=== PATIENT | male | born 1975 | race Caucasian/White ===

== ENCOUNTER 2025-06-21 00:57 | Day surgery (SDC) | payer BC, SELFPAY ==
[2025-06-06 15:07] VITALS: BMI 36.9
--- OUTSIDE RECORDS SUMMARY | 2025-06-21 00:59 | XMS_ITS | Encounter Summary ---
Author Organization [facility] Address [address] [place] [address] Care Team Providers Care Retail Project Merchandiser Name Role Phone Unavailable Primary Care Provider Unavailabl e Encounter Details Date Type Department Care Team (Late st Contact Info) Description 10/21/2003 Outpatient Historical [facility] Internal Medicine Maryuri Jeffery [address] [place] [address] [place] [address] [place] [address] Social History Tobacco Use Types Packs/Day Years Used Date Smoking Tobacco: Never Assessed Sex and Gender Information Value Date Recorded Sex Assigned at Not on file 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
--- OUTSIDE RECORDS SUMMARY | 2025-06-21 00:59 | XMS_ITS | Continuity of Care Document ---
Author Organization [facility], [facility] Address [address] [place] [address] Assessment No assessment recorded. Plan of Treatment Reminders Order Date Submit Date Provider Last Modified By Organization Details Last Modified Time Details Appointments ANY 15 2025 02:00P Subha Whitlock, DO Not available Not available Not available Lab lipid panel, serum 2024 026 [email or web address], [facility] [place], [address], 04/20/2025 18:01:36 hepatic function panel, serum 2024 026 [email or web address] [facility], [address] [address] [facility] [address], [place], [address], 04/20/2025 18:01:36 Referral gastroent erologist referral - colonosco py 2024 025 [facility], [address], [address], [place], [address], 04/22/2025 08:30:53 Procedures None recorded. Surgeries None recorded. Imaging None recorded. Medication Orders rosuvasta tin 5 mg tablet 2024 025 [email or web address] [id number], [address], [place], [address], 04/20/2025 18:01:36 amlodipin e 5 mg tablet 2024 025 [email or web address] [id number], [address] [place], [address], 04/20/2025 18:01:36 Patient TargetsNo targets recorded. 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 Screening for malignant neoplasm of colon colonoscopy Referring Physician: Noah Whitlock, Family Medicine, Encounter Date: 04/20/2025 Problems Name Problem SNOMED Code Status Onset Date Resolution Date Notes Provider Name and Address Organization Details Recorded Time Obesity 341687070 Active 2023 Noah Whitlock DO Attn: Jose [address]saint,[address] [place], [address], [place] [facility] 20:04:42 Dyslipidemia 773044834 Active 2023 Noah Whitlock DO Attn: Joes toussaint,[address] [place], [address], [place] [facility] 20:04:43 Adult health examination Active 2023 Noah Whitlock DO Attn: Jose [address] [place], [address], [place] 20:04:44 Essential hypertension 54575725 Active 2024 Noah Whitlock DO Attn: Jose [address] [place], [address], [place] [facility] 17:37:19 History and physical examination, annual for health maintenance Active 2024 Noah Whitlock DO Attn: Jose [address] [place], [address], [place] [facility] [facility] 17:37:20 Problem Notes None recorded. Medical Equipment None Reported. Allergies No known drug allergies Medications Name Sig Start Date Stop Date Status Note LastModified by Organization Details LastModified Time amlodipine 5 mg tablet TAKE 1 TABLET BY MOUTH EVERY DAY active Not Available Not Available No t Available rosuvastatin 5 mg tablet TAKE 1 TABLET BY MOUTH EVERY DAY active Not Available Not Available No t Available Vitals Date Recorded Systolic And Diastolic Provider Name and Address Organization Details Last Updated DateTime 04/20/2025 142/94 mm[Hg] Christ Pereira Attn: [facility], [place], [address], [facility] 04/20/2025 17:37:07 Date Recorded Body height Body mass index (BMI) Body weight Provider Name and Address Organization Details Last Updated DateTime 04/20/2025 177.8 cm 37.6 kg/m2 629527.25 g Brianne Brantley MA [facility] 04/20/2025 16:59:59 Social History Question Answer Notes LastModified by [employer] Details LastModified Time Tobacco Smoking Status Former Smoker Barbara Lazarus torres, [facility] 01/09/2024 15:56:34 What Is Your Level Of Caffeine Consumption? Occasional Information not available 04/20/2025 What Was The Date Of Your Most Recent Tobacco Screening? 04/20/2025 Information not available 04/20/2025 What Is Your Relationship Status? Information not available 01/09/2024 Has Tobacco Cessation Counseling Been Provided? No Information not available 04/20/2025 How Many Years Have You Smoked Tobacco? 20 Information not available 01/09/2024 Sex: Male Functional Status Question Answer Note LastModified by [employer] Details LastModified Time Do you use any illicit or recreational drugs? No Information not available 04/20/2025 Do you or have you ever used any other forms of tobacco or nicotine? No Information not available 04/20/2025 What is your level of alcohol consumption? Occasional Information not available 04/20/2025 Mental Status None recorded. Family History Nothing Reported. Medical History Condition Response Coronary Artery Disease N Other N Atrial Fibrillation N High Blood Pressure Y Thyroid Problems N Kidney or Bladder Problems N Depression N COPD N Blood Clots N GI Problems N Skin Problems N Eating Disorder N Anemia N Heart Attack ([place]) N Diabetes N Anxiety Disorder N Muscle, Joint, or Bone Problems N Seizures/Epilepsy N Arthritis N Acid Reflux (GERD) N Cancer N Stroke N Allergies N Asthma N ADHD N Substance Abuse N High Cholesterol Y Hepatitis N Liver Disease N Schizophrenia N Headaches N Osteoporosis N Heart Failure N Immunizations Vaccine Type Date Status Note Provider Nam e and Address Organization Details Recorded Time COVID-19, mRNA, LNP-S, PF, 30 mcg/0.3 mL dose 10/31/2020 completed Not Available [facility] 16:57:21 COVID-19, mRNA, LNP-S, PF, 30 mcg/0.3 mL dose 11/25/2020 completed Not Available [facility] 16:57:21 COVID-19, mRNA, LNP-S, PF, 30 mcg/0.3 mL dose 07/17/2021 completed Not Available [facility] 16:57:21 Past Encounters Encounter ID Performer Location Encounter Start Date Encounter Closed Date Diagnosis/Indication Diagnosis SNOMED-CT Code Diagnosis ICD10 Code Diagnosis IMO Codes Diagnosis Note [id number] Noah Whitlock DO [facility] [address] [address] 04/20/2025 16:49:53 04/21/2025 13:57:24 History and physical examination, annual for health maintenance 06843060 Z00.00 2073468211 restart rosuvastat inlab 3 monthscolo noscopy Essential hypertension 70040454 I10 35887 restart amlodipine amlodipine 5 mg dailyhas not taken for months Obese class II 762024141 1 26307 E66.812 E66.3 0836004924 Dyslipidemia 571376102 E 78.5 chronic condition at goal with Crestor 5 mg Screening for malignant neoplasm of colon 258503723 Z12.11 763071 Health Concerns Section Related Observation LastModified by Organization Detai ls LastModified Time None Recorded Concern Status LastModified by Organization Details LastModified Time None Recorded Payers Encounter Date Sequence Insurance Name Policy Number Policy Jimenez Covered Member ID Jimenez Member ID Guarantor Name 04/20/2025 1 [employer] FORMERLY [facility] ([facility] Noah Canela [id number] Noah Canela Notes Date Note Type Note Provider Name and Address Organization Details Recorded Time 04/20/2025 text/html annual wellness Noah Whitlock DO Attn: [address] [facility], [place], [address], [facility] 04/20/2025 18:25:00
--- OUTSIDE RECORDS SUMMARY | 2025-06-21 00:59 | XMS_ITS | Data Portability ---
Author Organization [facility] Address [address] [place] [address] Assessment No assessment recorded. Plan of Treatment Reminders Order Date Submit Date Provider Last Modified By Organization Details Last Modified Time Details Appointments ANY 15 2025 02:00P Subha Whitlock, DO Not available Not available Not available Lab lipid panel, serum 2024 026 [email or web address] [facility], [address], [place], [address], 04/20/2025 18:01:36 hepatic function panel, serum 2024 026 [email or web address] [facility], [address], [place], [address], 04/20/2025 18:01:36 Referral gastroent erologist referral - colonosco py 2024 025 [facility], [address], [address], [place], [address], 04/22/2025 08:30:53 Procedures None recorded. Surgeries None recorded. Imaging None recorded. Medication Orders rosuvasta tin 5 mg tablet 2024 025 [email or web address] [id number], [address] [place], [address], 04/20/2025 18:01:36 amlodipin e 5 mg tablet 2024 025 [email or web address] [id number], [address] [place], [address], 04/20/2025 18:01:36 Patient TargetsNo targets recorded. 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 Referral for Screening for malignant neoplasm of colon colonoscopy Referring Physician: Noah Whitlock, Family Medicine, Encounter Date: 04/20/2025 Results Created Date Observation Date Name Description Value Unit Range Abnormal Flag Note LastModifiedBy Organization Detail LastModifiedTime 03/18/2003/19/2025 LIPID PANEL , STAND BOOKER cholesterol, total 294 mg/dL <200 high Not Available [address], [address], 03/19/2025 06:57:14 03/18/2003/19/2025 LIPID PANEL , STAND BOOKER HDL cholesterol 47 mg/dL > or = 40 normal Not Available [address], [address], 03/19/2025 06:57:14 03/18/2003/19/2025 LIPID PANEL , STAND BOOKER triglyceride s 215 mg/dL <150 high If a non-f astin g speci men was colle cted, consi cesar repea t trigl yceri de testi ng on a fasti ng speci men if clini almas indic ated. Julian sahu et al. J. of Clin. Lipid ol. 2015; 9:129 -169. Not Available [address], [address], 03/19/2025 06:57:14 03/18/20 25 03/19/2025 LIPID PANEL , STAND BOOKER LDL-choleste rol 206 mg/dL _(yajaira c) high LDL-C level s > or = 190 mg/dL may indic ate famil ial hyper kat stero lemia (FH). Clini yajaira asses sment and measu remen t of blood lipid level s shoul d be consi dered for all first degre e relat bandar of patie nts with an FH diagn osis. LDL Kat stero l (LDL- C) level s > or = 300 mg/dL may indic ate homoz ygous famil ial hyper kat stero lemia (HoFH ). Untre ated, these extre brent high LDL-C level s can resul t in josé miguel ture CV event s and morta lity. Patie nts shoul d be ident ified early and provi ded appro priat e inter venti ons to reduc e the cumul ative LDL-C burde n from . For quest ions about testi ng for famil ial hyper kat stero lemia , pleas e call [facility] r[facility]do at 1.866 .GENE .INFO . Julian sahu T, et al. J Natio nal Lipid Assoc iatio n Recom menda tions for Patie nt-Ce ntere d Manag ement of Dysli pidem ia: Part 1 Journ al of Clini yajaira Lipid ology 2015; 9(2), 129-1 69. Subha Riojas. et al. (2014 ). Homoz ygous famil ial hyper kat stero laemi a: new insig hts and emma nce for clini cians to impro ve detec tion and clini yajaira manag ement . Europ ishaan Heart Journ al, 35(74 ), 2140- 2157. Refer ence range : <100 Ty able range <100 mg/dL for prima ry preve ntion ; <70 mg/dL for patie nts with CHD or diabe tic patie nts with > or = 2 CHD risk facto rs. LDL-C is now calcu lated using the Lacey n-Hop kins calcu latio n, which is a valid ated novel metho d provi ding cheryle r accur acy than the Fried lanette equat ion in the estim ation of LDL-C . Lacey n SS et al. DALE. 2013; 310(1 9): 2061- 2068 (http ://ed ucati on.Qu Karin cowanLomakis. com/f aq/FA Q164) Not Available [address], [address], 03/19/2025 06:57:14 03/18/2003/19/2025 LIPID PANEL , STAND BOOKER chol/HDLC ratio 6.3 (calc ) <5.0 high Not Available [facility] [address], [address], 03/19/2025 06:57:14 03/18/2003/19/2025 LIPID PANEL , STAND BOOKER non HDL cholesterol 247 mg/dL _(yajaira c) <130 high Non-H DL level > or = 220 is very high and may indic ate christy ic famil ial hyper kat stero lemia (FH). Clini yajaira asses sment and measu remen t of blood lipid level s shoul d be consi dered for all first -degr ee relat bandar of patie nts with an FH diagn osis. For patie nts with diabe sixto plus 1 major ASCVD risk facto r, treat ing to a non-H DL-C goal of <100 mg/dL (LDL- C of <70 mg/dL ) is consi dered a thera peuti c optio n. Not Available [address], [address], 03/19/2025 06:57:14 03/18/2003/19/2025 TSH+F REE T4 TSH 2.15 mIU/L 0.40-4 .50 normal Not Available [facility] [address], [address], 03/19/2025 06:57:16 03/18/2003/19/2025 TSH+F REE T4 T4, free 1.1 NG/dL 0.8-1. 8 normal Not Available [facility] [address], [address], 03/19/2025 06:57:16 03/18/2003/19/2025 BASIC METAB OLIC PANEL glucose 95 mg/dL 65-99 normal Fasti ng refer ence inter will Not Available [address], [address], 03/19/2025 06:57:17 03/18/2003/19/2025 BASIC METAB OLIC PANEL urea nitrogen (BUN) 16 mg/dL 7-25 normal Not Available [address], [address], 03/19/2025 06:57:17 03/18/2003/19/2025 BASIC METAB OLIC PANEL creatinine 0.92 mg/dL 0.60-1 .29 normal Not Available [address], [address], 03/19/2025 06:57:17 03/18/2003/19/2025 BASIC METAB OLIC PANEL eGFR 103 mL/mi n/1.7 3m2 > or = 60 normal Not Available [address], [address], 03/19/2025 06:57:17 03/18/2003/19/2025 BASIC METAB OLIC PANEL BUN/creatini ne ratio SEE NOTE: (calc ) 6-22 Not Repor donna: BUN and Creat inine are withi n refer ence range . Not Available [address], [address], 03/19/2025 06:57:17 03/18/2003/19/2025 BASIC METAB OLIC PANEL sodium 138 mmol/ L 135-14 6 normal Not Available [address], [address], 03/19/2025 06:57:17 03/18/2003/19/2025 BASIC METAB OLIC PANEL potassium 5.1 mmol/ L 3.5-5. 3 normal Not Available [address], [address], 03/19/2025 06:57:17 03/18/20 25 03/19/2025 BASIC METAB OLIC PANEL chloride 101 mmol/ L 98-110 normal Not Available [address], [address], 03/19/2025 06:57:17 03/18/20 25 03/19/2025 BASIC METAB OLIC PANEL carbon dioxide 30 mmol/ L 20-32 normal Not Available [address], [address], 03/19/2025 06:57:17 03/18/20 25 03/19/2025 BASIC METAB OLIC PANEL calcium 9.5 mg/dL 8.6-10 .3 normal Not Available [address], [address], 03/19/2025 06:57:17 03/18/20 25 03/19/2025 HEPAT IC FUNCT ION PANEL protein, total 7.3 g/dL 6.1-8. 1 normal Not Available [address], [address], 03/19/2025 06:57:18 03/18/2003/19/2025 HEPAT IC FUNCT ION PANEL albumin 4.4 g/dL 3.6-5. 1 normal Not Available [address], [address], 03/19/2025 06:57:18 03/18/2003/19/2025 HEPAT IC FUNCT ION PANEL globulin 2.9 g/dL_ (calc ) 1.9-3. 7 normal Not Available [address], [address], 03/19/2025 06:57:18 03/18/20 25 03/19/2025 HEPAT IC FUNCT ION PANEL albumin/glob ulin ratio 1.5 (calc ) 1.0-2. 5 normal Not Available [address], [address], 03/19/2025 06:57:18 03/18/2003/19/2025 HEPAT IC FUNCT ION PANEL bilirubin, total 1.3 mg/dL 0.2-1. 2 high Not Available [address], [address], 03/19/2025 06:57:18 03/18/2003/19/2025 HEPAT IC FUNCT ION PANEL bilirubin, direct 0.2 mg/dL < or = 0.2 normal Not Available [address], [address], 03/19/2025 06:57:18 03/18/2003/19/2025 HEPAT IC FUNCT ION PANEL bilirubin, indirect 1.1 mg/dL _(yajaira c) 0.2-1. 2 normal Not Available [address], [address], 03/19/2025 06:57:18 03/18/2003/19/2025 HEPAT IC FUNCT ION PANEL alkaline phosphatase 70 U/L 36-130 normal Not Available [facility] [address], [address], 03/19/2025 06:57:18 03/18/2003/19/2025 HEPAT IC FUNCT ION PANEL AST 22 U/L 10-40 normal Not Available [address], [address], 03/19/2025 06:57:18 03/18/2003/19/2025 HEPAT IC FUNCT ION PANEL ALT 30 U/L 9-46 normal Not Available [address], [address], 03/19/2025 06:57:18 03/18/2003/19/2025 CBC (INCL UDES DIFF/ PLT) white blood cell count 5.3 thous and/u L 3.8-10 .8 normal Not Available [address], [address], 03/19/2025 06:57:19 03/18/2003/19/2025 CBC (INCL UDES DIFF/ PLT) red blood cell count 4.81 freddie on/uL 4.20-5 .80 normal Not Available [address], [address], 03/19/2025 06:57:19 03/18/2003/19/2025 CBC (INCL UDES DIFF/ PLT) hemoglobin 14.9 g/dL 13.2-1 7.1 normal Not Available [address], [address], 03/19/2025 06:57:19 03/18/2003/19/2025 CBC (INCL UDES DIFF/ PLT) hematocrit 45.3 % 38.5-5 0.0 normal Not Available [address], [address], 03/19/2025 06:57:19 03/18/2003/19/2025 CBC (INCL UDES DIFF/ PLT) MCV 94.2 fL 80.0-1 00.0 normal Not Available [address], [address], 03/19/2025 06:57:19 03/18/2003/19/2025 CBC (INCL UDES DIFF/ PLT) MCH 31.0 pg 27.0-3 3.0 normal Not Available [address], [address], 03/19/2025 06:57:19 03/18/202025 CBC (INCL UDES DIFF/ PLT) MCHC 32.9 g/dL 32.0-3 6.0 normal For adult s, a sligh t decre ase in the calcu lated MCHC value (in the range of 30 to 32 g/dL) is most likel y not clini almas signi ficfran t; humbertoev er, it shoul d be inter prete d with cauti on in corre latio n with other red cell alfredo eters and the patie nt's clini yajaira condi tion. Not Available [address], [address], 03/19/2025 06:57:19 03/18/2003/19/2025 CBC (INCL UDES DIFF/ PLT) RDW 12.9 % 11.0-1 5.0 normal Not Available [facility] [address], [address], 03/19/2025 06:57:19 03/18/20 25 03/19/2025 CBC (INCL UDES DIFF/ PLT) platelet count 303 thous and/u L 140-40 0 normal Not Available [facility] [address], [address], 03/19/2025 06:57:19 03/18/20 25 03/19/2025 CBC (INCL UDES DIFF/ PLT) MPV 9.2 fL 7.5-12 .5 normal Not Available [address], [address], 03/19/2025 06:57:19 03/18/2003/19/2025 CBC (INCL UDES DIFF/ PLT) absolute neutrophils 2830 cells /uL 1500-7 800 normal Not Available [facility] [address], [address], 03/19/2025 06:57:19 03/18/20 25 03/19/2025 CBC (INCL UDES DIFF/ PLT) absolute lymphocytes 1988 cells /uL 850-39 00 normal Not Available [address], [address], 03/19/2025 06:57:19 03/18/2003/19/2025 CBC (INCL UDES DIFF/ PLT) absolute monocytes 382 cells /uL 200-95 0 normal Not Available [address], [address], 03/19/2025 06:57:19 03/18/2003/19/2025 CBC (INCL UDES DIFF/ PLT) absolute eosinophils 69 cells /uL 15-500 normal Not Available [address], [address], 03/19/2025 06:57:19 03/18/2003/19/2025 CBC (INCL UDES DIFF/ PLT) absolute basophils 32 cells /uL 0-200 normal Not Available [address], [address], 03/19/2025 06:57:19 03/18/2003/19/2025 CBC (INCL UDES DIFF/ PLT) neutrophils 53.4 % normal Not Available [address], [address], 03/19/2025 06:57:19 03/18/2003/19/2025 CBC (INCL UDES DIFF/ PLT) lymphocytes 37.5 % normal Not Available [address], [address], 03/19/2025 06:57:19 03/18/2003/19/2025 CBC (INCL UDES DIFF/ PLT) monocytes 7.2 % normal Not Available [address], [address], 03/19/2025 06:57:19 03/18/20 25 03/19/2025 CBC (INCL UDES DIFF/ PLT) eosinophils 1.3 % normal Not Available [facility] [place] [address] [place], [address], 03/19/2025 06:57:19 03/18/20 25 03/19/2025 CBC (INCL UDES DIFF/ PLT) basophils 0.6 % normal Not Available [facility] [place] [address] [place], [address], 03/19/2025 06:57:19 03/18/20 25 03/19/2025 PSA, TOTAL PSA, total 0.72 NG/mL < or = 4.00 normal The total PSA value from this assay syste m is stand ardiz ed again st the WHO stand booker. The test resul t will be appro ximat mickie 20% lower when ronaldo red to the equim olar- stand ardiz ed total PSA (Garcia man Coult er). Ronaldo rison of seria l PSA resul ts shoul d be inter prete d with this fact in mind. This test was perfo rmed using the [employer] DBA eGifter chemi lumin escen t metho d. Value s obtai xavier from diffe rent assay metho ds canno t be used inter benitez eably . PSA level s, regar dless of value , shoul d not be inter prete d as absol emmonak evide nce of the prese nce or absen ce of disea se. Not Available [place] [address] [place], [address], 03/19/2025 06:57:20 Result Notes None recorded. Problems Name Problem SNOMED Code Status Onset Date Resolution Date Notes Provider Name and Address Organization Details Recorded Time Obesity 791590505 Active 2023 Noah Whitlock DO Attn: Jose toussaint,[address] [facility], [place], [address], [place] 20:04:42 Dyslipidemia 981041472 Active 2023 Noah Whitlock DO Attn: Jose toussaint,[address] [facility], [place], [address], [place] 4 20:04:43 Adult health examination Active 2023 Noah Whitlock DO Attn: Jose toussaint,[address] [facility], [place], [address], [facility] - [place] 4 20:04:44 Essential hypertension 14739054 Active 2024 Noah Whitlock DO Attn: Jose toussaint,[address] [place], [address], [facility] - [place] 5 17:37:19 History and physical examination, annual for health maintenance Active 2024 Noah Whitlock DO Attn: Jose toussaint,[address] [place], [address], [facility] - [place] 5 17:37:20 Problem Notes None recorded. Medical [...] and Address Organization Details Last Updated DateTime 01/09/2024 136/86 mm[Hg] Christ Pereira Attn: Accounting,[address] [place], [address] [place] [address] [place] 01/09/2024 16:17:59 Date Recorded Body weight Body mass index (BMI) Body height Oxygen saturation Heart rate Provider Name and Address Organization Details Last Updated DateTime 01/09/2024 192899.0 4 g 36 kg/m2 177.8 cm 95 % 88 /min Barbara Qiu [facility] 4 15:55:43 Date Recorded Systolic And Diastolic Provider Name and Address Organization Details Last Updated DateTime 04/20/2025 142/94 mm[Hg] Christ Pereira Attn: Accounting,[address] [place], [address], [place] 04/20/2025 17:37:07 Date Recorded Body height Body mass index (BMI) Body weight Provider Name and Address Organization Details Last Updated DateTime 04/20/2025 177.8 cm 37.6 kg/m2 782497.25 g Brianne Brantley MA [facility] 04/20/2025 16:59:59 Social History Question Answer Notes LastModified by Organizat ion Details LastModified Time Tobacco Smoking Status Former Smoker Barbara Moffettolivia torres [facility] 01/09/2024 15:56:34 What Is Your Level [...] Functional Status Question Answer Note LastModified by Organizat [employer] Details LastModified Time Do you use any [...] Eating Disorder N Anemia N Heart Attack (IA) N Diabetes N Anxiety Disorder N Muscle, [...] mcg/0.3 mL dose 10/31/2020 completed Not Available [facility] 16:57:21 COVID-19, mRNA, LNP-S, PF, 30 mcg/0.3 mL dose 11/25/2020 completed Not Available [facility] 16:57:21 COVID-19, mRNA, LNP-S, PF, 30 mcg/0.3 mL dose 07/17/2021 completed Not Available [facility] 16:57:21 Past Encounters Encounter ID Performer Location Encounter Start Date Encounter Closed Date Diagnosis/Indication Diagnosis SNOMED-CT Code Diagnosis ICD10 Code Diagnosis IMO Codes Diagnosis Note [id number] Noah Whitlock DO [facility] [place] [address] [facility] [address] 01/09/2024 15:52:16 01/09/2024 16:30:27 Adult health examination 092896841 Z00.00 order routine lab Dyslipidemia 247094222 E 78.5 chronic condition at goal with Crestor 5 mg Obesity 554165967 E66.8 chronic conditionn ot at [facility] diet and weight loss Essential hypertension 77940682 I10 start amlodipine 5 mg daily [id number] Noah Whitlock DO [facility] [place] [address] [facility] [address] 04/20/2025 16:49:53 04/21/2025 13:57:24 History and physical examination, annual for health maintenance 16074987 Z00.00 6162615064 restart rosuvastat inlab 3 monthscolo noscopy Essential hypertension 22381357 I10 27538 restart amlodipine amlodipine 5 mg dailyhas not taken for months Obese class II 868760695 1 15904 E66.812 E66.3 2423871145 Dyslipidemia 514246176 E 78.5 chronic condition at goal with Crestor 5 mg Screening for malignant neoplasm of colon 638428003 Z12.11 019403 Health Concerns Section Related Observation LastModified by Organization Detai ls LastModified Time None Recorded Concern Status LastModified by Organization Details LastModified Time None Recorded Advance Directives Directive None Recorded Payers Insurance Date Sequence Insurance Name Policy Number Policy Jimenez Covered Member ID Jimenez Member ID Guarantor Name 04/20/2025 1 [employer] [facility] Noah Canela [id number] Noah Canela Notes Date Note Type Note Provider Name and Address Organization Details Recorded Time 01/09/2024 text/html establish carehas not been takling crestor Noah Whitlock DO Attn: Accounting,[address] [facility], [place], [address], [facility] - [facility] 01/09/2024 17:35:07 04/20/2025 text/html annual wellness Noah Whitlock DO Attn: Accounting,[address] [facility], [place], [address], [facility] - [place] 04/20/2025 18:25:00
--- OUTSIDE RECORDS SUMMARY | 2025-06-21 00:59 | XMS_ITS | Clinical Summary ---
Author Organization [facility] Address [address] [facility] [address] [place] [address] Phone Care Team Providers Care Gun Stock Checker Name Role Phone Noah Whitlock DO Primary Care Provider + Allergies No known active allergies Medications rosuvastatin (CRESTOR) 5 mg tablet TAKE 1 TABLET(5 MG) BY MOUTH DAILY 30 tablet 2 08/05/2023 Active Active Problems Problem Noted Date Diagnosed Date Hyperlipidemia 12/03/2022 Assessment & Plan (03/17/2023 10:28 AM CDT): Patient is well controlled. Continue current treatment. Assessment & Plan (12/03/2022 2:37 PM CDT): Start crestor 5 mg QHS and repeat labs in 3 months. Annual physical exam 11/18/2022 Assessment & Plan (11/18/2022 10:12 AM CDT): Chart reviewed He did have blood work done through his job this was in July of 2022 I will set him up for a routine screening colonoscopy Severe obesity (BMI 35.0-39.9) with comorbidity 11/18/2022 Assessment & Plan (03/17/2023 10:28 AM CDT): Healthy diet Weight loss Assessment & Plan (11/18/2022 10:17 AM CDT): Healthy diet Weight loss Immunizations Immunization Administration Dates Next Due Influenza, Unspecified 04/20/2022(Deferr ed: Patient Refused),04/20/2022(Deferred: Patient Refused) Social History Tobacco Use Types Packs/Day Years Used Date Smoking Tobacco: Never Smokeless Tobacco: Never Tobacco Cessation:Counseling Given: Not Answered AUDIT-C Answer Date Recorded Q1: How often do you have a drink containing alcohol? Never 11/18/2022 Q2: How many drinks containi ng alcohol do you have on a typical day when you are drinking? Patient does not drink Q3: How often do you have si x or more drinks on one occasion? 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 Gender Identity Not on file Sexual Orientation Not on file Last Filed Vital Signs Vital Sign Reading Time Taken Comments Blood Pressure 134/78 03/17/2023 10:06 AM CDT Pulse 91 03/17/2023 10:06 AM CDT Temperature 36.4 C (97.6 F) 03/17/2023 10:06 AM CDT Respiratory Rate 18 03/17/2023 10:0 6 AM CDT Oxygen Saturation 97% 03/17/2023 10: 06 AM CDT Inhaled Oxygen Concentration - - Weight 114.9 kg (253 lb 6.4 oz) 023 10:06 AM CDT Height 177.8 cm (5' 10) 03/17/2023 10: 06 AM CDT Body Mass Index 36.36 03/17/2023 10:06 AM CDT Plan of Treatment Health Maintenance Due Date Last Done Comments Colon Cancer Screening-Colonoscopy 1976 Hepatitis C Screening 1976 DTaP/Tdap/Td Vaccine (1 - Tdap) 1987 Hepatitis B Screening 1994 Depression Screening 11/19/2023 11/18/2022 Regular Well Visit/Exam 18-64 11/19/2023 11/18/2022 Covid-19 Vaccine (2024-2 6 season) 2025 07/17/2021, 11/25/2020, 10/31/2020 Influenza Vaccine (#1) 2025 Pneumococcal vaccine <65 Aged Out No longer eligible based on patient's age to complete this topic Insurance [facility] [employer] Care Teams Gun Stock Checker Relationship Specialty Start Date End Date Noah Whitlock DO PCP - General Family Medicine 11/14/22
--- OUTSIDE RECORDS SUMMARY | 2025-06-21 00:59 | XMS_ITS | Clinical Summary ---
Author Organization [facility] Address [address] Martinezn: Epic Prelude ADT REFUGIO CABALLEROFABIANO [address] Care Team Providers Care Communications Analyst Name Role Phone Unavailable Primary Care Provider Unavailabl e Social History Tobacco Use Types Packs/Day Years Used Date Smoking Tobacco: Never Assessed Sex and Gender Information Value Date Recorded Sex Assigned at Not on file Legal Sex Male 3:11 AM [employer] Gender Identity Not on file Sexual Orientation Not on file Plan of Treatment Health Maintenance Due Date Last Done Comments DTAP/TDAP/TD VACCINES (1 - Tdap) 1995 HEPATITIS B VACCINES (1 of 3 - 19+ 3-dose series) 12/1994 COLORECTAL SCREENING 2021 Colorectal Cancer Screening 2021 FIT-DNA Q 3 years 2021 FIT/FOBT Q 1 year 2021 Flex Sig/CT Colonography Q 5 years 2021 INFLUENZA VACCINE (#1) 2025
[2025-06-21 11:55] VITALS: BP 158/106; PULSE 90; RESP 16; TEMP 36.1; O2SAT 97; BMI 38.5
[2025-06-21] MEDS: LACTATED RINGERS 1,000 ML 150 ML IV CONT (12:08)
--- NOTE | 2025-06-21 12:45 | PM.IMHP2 ---
H&P: HPI History of Present Illness Date/Time: 06/21/25 12:45 Chief Complaint: Screening colonoscopy Narrative: This is the patient's first colonoscopy. There are no GI symptoms and there is no family history of colorectal cancer. Review of Systems Review of Systems: All systems reviewed & are unremarkable except as noted in HPI and below [facility] Past Medical History Medical History (Updated 06/21/25 @ 12:46 by Ion Alcantara MD) Hypertension FHx: heart disease Hyperlipidemia Family History Family History Father Diabetes mellitus Patient's father is in good health Family history of malignant neoplasm Mother Diabetes mellitus Hypertension Patient's mother is in good health Sibling Diabetes mellitus Hypertension Patient's sister is in good health Patient's brother is in good health Social History Social History Social History: Smoking status: Never smoker Second hand tobacco smoke exposure: No Alcohol intake: current Drinks per week: 3 Substance use type: does not use Living arrangements: with family Occupation/Education: occupation Gender identity (if verbalized by the patient): Male Sexual Orientation (if Verbalized by the Patient): Straight or Heterosexual Meds Home Medications and Allergies Home Medications ?Medication ?Instructions ?Recorded ?Confirmed ?Type amlodipine 5 mg tablet 5 mg PO DAILY 06/06/25 06/21/25 History rosuvastatin 5 mg tablet 5 mg PO DAILY 06/06/25 06/21/25 History Allergies Allergy/AdvReac Type Severity Reaction Status Date / Time No Known Allergies Allergy Verified 06/21/25 11:54 Vital Signs Vital Signs - 24 hr 06/21/25 11:55 Temperature 97 F L Pulse Rate 90 Respiratory Rate 16 Blood Pressure 158/106 H Pulse Oximetry 97 Oxygen Delivery Room Air Exam Const: General: cooperative and healthy appearing Resp: Effort & Inspection: normal respiratory effort and able to speak in complete sentences Auscultation: clear to auscultation bilaterally Cardio: Rate: regular rate Rhythm: regular rhythm GI: Inspection: normal to inspection GI Palp: No No hepatosplenomegaly present Auscultation: normal bowel sounds Rectal Exam: deferred Skin: General skin exam: normal color Psych: Appearance: grossly normal Mental Status: mental status grossly normal Assessment and Plan Assessment and plan (1) Encounter for screening colonoscopy: Code(s): Z12.11 - Encounter for screening for malignant neoplasm of colon Status: Acute Assessment and Plan: The patient is deemed a good candidate for the procedure. Consent signed. Will proceed. Prior Studies I have reviewed the following patient records and this information was taken into consideration when formulating the assessment and plan.: previous labs, previous ER visits, previous hospitalizations and previous clinic visits
--- NOTE | 2025-06-21 12:46 | WPDANESEPPF ---
Anes - Initial Pre Proc Eval Procedure: Operation Date: 06/21/25 14:30 Proposed Procedures p Screening Colonoscopy - Ion Alcantara MD Date/Time: 06/21/25 12:46 Surgeon: Ion Alcantara MD Pre Op Diagnosis: Screening Patient Data Age: 50 Gender: M Height: 1.75 m Weight: 118.5 kg Last Vital Signs Temp 36.1 C L 06/21/25 11:55 Pulse 90 06/21/25 11:55 Resp 16 06/21/25 11:55 BP 158/106 H 06/21/25 11:55 Pulse Ox 97 06/21/25 11:55 O2 Del Method Room Air 06/21/25 11:55 Allergies Allergy/AdvReac Type Severity Reaction Status Date / Time No Known Allergies Allergy Verified 06/21/25 11:54 Home Medications ?Medication ?Instructions ?Recorded ?Confirmed ?Type amlodipine 5 mg tablet 5 mg PO DAILY 06/06/25 06/21/25 History rosuvastatin 5 mg tablet 5 mg PO DAILY 06/06/25 06/21/25 History Patient hx anesthesia problems: none Family hx anesthesia problems: none Results Review: All pre-operative results and documents have been reviewed as part of the pre-operative evaluation. [facility] Past Medical History Medical History (Updated 06/21/25 @ 12:46 by Ion Alcantara MD) Hypertension FHx: heart disease Hyperlipidemia Family History Family History Father Diabetes mellitus Patient's father is in good health Family history of malignant neoplasm Mother Diabetes mellitus Hypertension Patient's mother is in good health Sibling Diabetes mellitus Hypertension Patient's sister is in good health Patient's brother is in good health Social History Social History Social History: Smoking status: Never smoker Second hand tobacco smoke exposure: No Alcohol intake: current Drinks per week: 3 Substance use type: does not use Living arrangements: with family Occupation/Education: occupation Gender identity (if verbalized by the patient): Male Sexual Orientation (if Verbalized by the Patient): Straight or Heterosexual Anes - Eval Final PreProcedure Day of Procedure 06/21/25 12:46 Patient weight: obese Heart: regular rate and rhythm Lungs: clear to auscultation Airway: Mallampati scale class II Neurological: alert and oriented Last oral intake: >/= 8 hours ASA classification: III Emergent: no Anesthetic plan: proceed Anesthesia type and monitoring: general GIVS and standard monitoring Results Review: All pre-operative results and documents have been reviewed as part of the pre-operative evaluation. Informed Consent: The patient's anesthetic plan and its attendant risks and benefits were discussed with the patient/family/POA. Questions were solicited and answers provided to the satisfaction of the patient/family/POA.
[2025-06-21 13:06] VITALS: BP 102/63; PULSE 80; RESP 13; O2SAT 93
[2025-06-21 13:16] VITALS: BP 107/59; PULSE 76; RESP 13; O2SAT 93
[2025-06-21 13:26] VITALS: BP 100/60; PULSE 68; RESP 11; O2SAT 95
== END 2025-06-21 13:38 | disposition home or self-care (01) ==
PROVIDERS: PCP Family Medicine; Visit Provider Internal Medicine Gastroenterology
PROC: 0DJD8ZZ Inspection of Lower Intestinal Tract, Via Natural or Artificial Opening Endoscopic (ICD-10-PCS; CPT 45378; principal; 2025-06-21 14:30)
DX: Z12.11 Encounter for screening for malignant neoplasm of colon (principal); E66.9 Obesity, unspecified; Z68.38 Body mass index [BMI] 38.0-38.9, adult
CPT/HCPCS: 45378; J2704; J7120